=== PATIENT | male | born 1985 | race Hispanic/Latino ===

== ENCOUNTER 2020-07-19 20:50 | Emergency (ER) | payer SELFPAY ==
[2020-07-19] MEDS ORDERED: HYDROCODONE/ACETAMINOPHEN 10/325 MG TAB ONE (21:53)
[2020-07-19] MEDS ORDERED: IBUPROFEN 600 MG TABLET ONE (21:53)
== END 2020-07-19 22:50 | disposition home or self-care (01) ==
LOC: EDH 20:50
DX: S62.396A Other fracture of fifth metacarpal bone, right hand, initial encounter for closed fracture (principal); Z72.0 Tobacco use; X58.XXXA Exposure to other specified factors, initial encounter; Y93.89 Activity, other specified; Y92.098 Other place in other non-institutional residence as the place of occurrence of the external cause; Y99.8 Other external cause status
CPT/HCPCS: 29125; 73130

== ENCOUNTER 2021-01-25 14:52 | Emergency (ER) | payer SELFPAY ==
[~2021-01-25] VITALS: Ht 177.8 cm; Wt 80.3 kg
[2021-01-25 14:53] VITALS: BP 111/58
[2021-01-25] MEDS ORDERED: KETOROLAC 30MG VIAL (30MG/ML) IM ONE (15:30)
[2021-01-25] MEDS ORDERED: ACET1TAB25 PO (16:23)
[2021-01-25] MEDS ORDERED: IBUP-2070 PO (16:23)
== END 2021-01-25 16:41 | disposition home or self-care (01) ==
LOC: EDH 14:52
DX: S43.401A Unspecified sprain of right shoulder joint, initial encounter (principal); J45.909 Unspecified asthma, uncomplicated; X58.XXXA Exposure to other specified factors, initial encounter; Y93.89 Activity, other specified; Y92.89 Other specified places as the place of occurrence of the external cause; Y99.8 Other external cause status
CPT/HCPCS: 73030; 96372; 99283; J1885

== ENCOUNTER 2023-12-18 03:10 | Emergency (ER) | payer OTHER ==
[~2023-12-18] VITALS: Ht 180.3 cm; Wt 77.1 kg
[~2023-12-18 03:10] MED LIST: ACET-2079 PO; IBUP-2070 PO
[2023-12-18] MEDS: teTANUS/diphthERIA TOXOID [ADULT] 0.5 ML VIAL IM ONE (03:59)
[2023-12-18 04:47] VITALS: BP 123/88; PULSE 74; RESP 20; TEMP 98.6; O2SAT 100
== END 2023-12-18 05:09 | disposition home or self-care (01) ==
LOC: EDH 03:10
DX: G89.29 Other chronic pain (principal); M54.50 Low back pain, unspecified; M54.2 Cervicalgia; J45.909 Unspecified asthma, uncomplicated; Z79.899 Other long term (current) drug therapy; Z98.890 Other specified postprocedural states; V49.40XA Driver injured in collision with unspecified motor vehicles in traffic accident, initial encounter; Y93.89 Activity, other specified; Y92.488 Other paved roadways as the place of occurrence of the external cause; Y99.8 Other external cause status
CPT/HCPCS: 72040; 72100; 90471; 90714